=== PATIENT | female | born 1980 | race Caucasian/White ===

== ENCOUNTER → 2020-12-01 21:03 | Outpatient (CLI) | payer OTHER, SELFPAY ==
[2020-12-01 21:22] LABS: Basophils % 0.5 % (0.1-2.0); Eosinophils # 0.2 K/mm3 (0.0-0.4); Eosinophils % 2.3 % (0.1-12.0); Hematocrit 40.7 % (37.0-47.0); Hemoglobin 13.7 g/dL (12.2-16.2); Lymphocytes # 2.2 K/mm3 (0.7-4.5); Lymphocytes % 32.8 % (10-50); Mean Corpuscular HGB Conc 33.6 g/dL (31.8-35.4); Mean Corpuscular Volume 83.5 fl (81-99); Mean Platelet Volume 9.1 fl (7.4-10.4); Monocytes # 0.3 K/mm3 (0.1-1.0); Monocytes % 5.1 % (1.7-9.3); Neutrophils % 59.3 % (37.0-80.0); Platelet Count 263 K/mm3 (142-424); Red Blood Count 4.88 M/mm3 (4.20-5.40); Red Cell Distribution Width 13.4 % (11.5-17.5); White Blood Count 6.7 K/mm3 (4.8-10.8)
[2020-12-01 21:40] LABS: Alanine Aminotransferase 50 U/L (12-78); Albumin Level 4.8 g/dl (3.5-5.0); Albumin/Globulin Ratio 1.8 (1.1-1.8); Alkaline Phosphatase 63 U/L (38-126); Amylase 37 U/L (30-110); Anion Gap 15.7 mEq/L (5-15); Aspartate Amino Transferase 32 U/L (14-36); Bilirubin,Total 0.5 mg/dl (0.2-1.3); Blood Urea Nitrogen 16 mg/dl (7-17); Calcium 9.7 mg/dl (8.4-10.2); Carbon Dioxide 26 mmol/L (22.0-30.0); Chloride 104 mmol/L (98-107); Estimated Glomerular Filt Rate 93 ml/min (>60); GFR (African American) 113 ML/MIN (>60); Globulin 2.7 g/dL (1.3-3.2); Glucose 90 mg/dl (74-100); Potassium 4.7 mmoL/L (3.5-5.1); Sodium 141 mmol/L (136-145); Total Protein,Serum 7.5 g/dl (6.3-8.2)
== END ==
PROVIDERS: Visit Provider Internal Medicine
DX: R10.13 Epigastric pain (principal); R11.0 Nausea
CPT/HCPCS: 80053; 82150; 85025

== ENCOUNTER → 2020-12-08 08:25 | Outpatient (CLI) | payer OTHER, SELFPAY ==
--- NOTE | 2020-12-08 08:29 | US_ITS ---
PROCEDURE: US ABDOMEN COMPLETE CLINICAL INDICATION: ABD PAIN COMPARISON: CT ABDPELW/O CT ABD PELVIS W/O CONTRAST from 10/06/2015 FINDINGS: PANCREAS: Unremarkable. No obvious mass or abnormal fluid collection. No ductal dilatation LIVER: Diffuse increased echogenicity of the liver with poor through transmission of sound consistent with hepatic steatosis. No focal liver lesion demonstrated. There is appropriate direction of blood flow within non dilated portal vein. RIGHT KIDNEY: Unremarkable. Normal size and echogenicity. No hydronephrosis LEFT KIDNEY: Unremarkable. Normal size and echogenicity. No hydronephrosis GALLBLADDER: Prior cholecystectomy. Common duct is normal at 4 mm. AORTA: No evidence of aneurysmal dilatation. SPLEEN: Unremarkable. Normal size and echogenicity ASCITES: None demonstrated. IMPRESSION: Fatty liver. Prior cholecystectomy. Otherwise negative Dictated by: Cristi Dangelo MD 12/08/2020 14:28 Cristi Dangelo MD in [place] 12/08/2020 14:28
== END ==
PROVIDERS: PCP Internal Medicine; Visit Provider Internal Medicine
DX: R10.9 Unspecified abdominal pain (principal)
CPT/HCPCS: 76700

== ENCOUNTER → 2021-11-24 16:28 | Outpatient (CLI) | payer OTHER, SELFPAY ==
--- NOTE | 2021-11-24 16:29 | MM_ITS ---
PROCEDURE INFORMATION: Exam: MG Bilateral Screening 3D Mammography Exam date and time: 11/24/2021 4:22 PM Age: 40 years old Clinical indication: Baseline screening mammogram TECHNIQUE: Imaging protocol: Bilateral Screening tomosynthesis and 2D mammography including computer-aided detection (CAD) when performed. COMPARISON: No relevant prior studies available. FINDINGS: MAMMOGRAPHY: Breast composition: There are scattered areas of fibroglandular density. Mass: None. Architectural distortion: No new or suspicious architectural distortion. Calcifications: No new or suspicious calcifications are present Asymmetric density: No new or suspicious asymmetric density is present Skin thickening: None. Axillary adenopathy: Benign intramammary lymph node in the right axillary tail. No axillary adenopathy IMPRESSION: No mammographic evidence of malignancy. Recommend annual screening mammography unless otherwise clinically indicated. ASSESSMENT: BI-RADS category 2: Benign
== END ==
PROVIDERS: PCP Internal Medicine; Visit Provider Obstetrics & Gynecology
DX: Z12.31 Encounter for screening mammogram for malignant neoplasm of breast (principal)
CPT/HCPCS: 77063; 77067

== ENCOUNTER → 2021-12-15 07:34 | Outpatient (CLI) | payer OTHER, SELFPAY ==
--- NOTE | 2021-12-15 07:38 | MR_ITS ---
FINAL REPORT CLINICAL HISTORY: NECK PAIN. LEFT SIDED NECK PAIN WITH LEFT SHOULDER AND ARM PAIN. NUMBNESS, AND TINGLING. NO INJURY OR TRAUMA. HEADACHE. FINDINGS: Multiplanar MR imaging of the cervical spine was performed without contrast. On the sagittal T2-weighted images, disc degeneration is seen at multiple levels. There is no evidence of fracture. The vertebral alignment is normal. The cervical spinal cord has an unremarkable appearance without evidence of mass, edema or syrinx. No significant canal stenosis is identified. The cervicomedullary junction is normal. C2-3: There is no significant canal stenosis or neural foraminal narrowing. C3-4: Small central disc protrusion is present. There is no significant canal stenosis or neural foraminal narrowing. C4-5: Small central disc protrusion is present. There is no significant canal stenosis or neural foraminal narrowing. C5-6: Disc osteophyte complex is present. There is a small central disc protrusion. There is no significant canal stenosis or neural foraminal narrowing. C6-7: An annular bulge is present. There is no significant canal stenosis or neural foraminal narrowing. C7-T1: There is no significant canal stenosis or neural foraminal narrowing. IMPRESSION: Small central disc protrusions at C3-4, C4-5, and C5-6. Reviewed, Interpreted and Dictated by Roldan Bess III, MD Transcribed by Mariposa Haney Authenticated and [facility]
== END ==
LOC: RAD 07:34 → SDC 13:30
PROVIDERS: PCP Internal Medicine; Visit Provider Nurse Practitioner Family
DX: M50.321 Other cervical disc degeneration at C4-C5 level (principal)
CPT/HCPCS: 72141; 76376

== ENCOUNTER 2021-12-15 13:26 | Day surgery (SDC) | payer OTHER, SELFPAY ==
[2021-12-15 13:36] VITALS: BP 142/100; PULSE 78; TEMP 36.9; O2SAT 96; BMI 39.1
[2021-12-15 13:42] VITALS: BP 137/87; PULSE 89; RESP 18
[2021-12-15 13:44] VITALS: BP 137/87; PULSE 88; RESP 18; O2SAT 99
--- NOTE | 2021-12-15 13:45 | EXP.PAIN.PRO ---
Procedure Date: 12/15/21 Time: 13:45 Anesthesiologist:: Ranjith Thao CRNA Complications:: None Pre-procedure Diagnosis:: Degenerative disc disease cervical spine. Cervical radiculopathy. Post-procedure Diagnosis:: Same Indications for Procedure:: This patient is a pleasant 40-year-old female that comes to our clinic today with continued cervical neck pain posteriorly. Bilateral shoulder and arm radicular symptoms at times. Patient is status post trigger point injection of the cervical paraspinous muscles as well as bilateral trapezius muscles. She reports 2 days of significant improvement after the trigger point injections. However, all of her pain came back after 48 hours. She describes the pain as constant, dull, aching. She presents to the clinic with a ice pack covering her posterior cervical spine. She rates the pain 8/10. Procedure Details:: Procedure:Cervical epidural steroid injection Informed consent was obtained and the risks and benefits of the procedure were explained to the patient. The patient was taken to the procedure room and noninvasive monitors placed, including noninvasive blood pressure cuff and pulse oximeter. The neck was prepped using Betadine as a cleansing solution. The C6-C7 interspace was palpated. The skin and subcutaneous tissues were anesthetized using lidocaine 1.5% and a 25-gauge needle. After this an 18-gauge Touhy epidural needle was placed into the C6-C7 interspace and advanced using loss of resistance to air until the epidural space was encountered. After confirmation of needle placement in the epidural space, a solution containing lidocaine 1.5%, 4 mL and Depo-Medrol 80 mg was incrementally injected into the cervical epidural space.~ The patient tolerated the procedure well with no complications. The patient was observed in the Pain Clinic and then discharged home neurologically intact. Plan and Disposition:: Patient was discharged without incident.
[2021-12-15 13:52] VITALS: BP 147/100; PULSE 78; RESP 20; O2SAT 96
== END 2021-12-15 14:21 | disposition home or self-care (01) ==
PROVIDERS: PCP Internal Medicine; Visit Provider Nurse Anesthetist, Certified Registered
DX: M50.123 Cervical disc disorder at C6-C7 level with radiculopathy (principal)
CPT/HCPCS: 62321; J1040; Q9966

== ENCOUNTER 2022-01-12 14:27 | Day surgery (SDC) | payer OTHER, SELFPAY ==
[2022-01-12 14:31] VITALS: BP 184/98; PULSE 94; RESP 18; TEMP 37.6; O2SAT 97; BMI 40.4
[2022-01-12 14:52] VITALS: BP 175/100; PULSE 90; RESP 20; O2SAT 97
[2022-01-12 14:54] VITALS: BP 175/101; PULSE 90; RESP 18; O2SAT 97
[2022-01-12 15:02] VITALS: BP 184/98; PULSE 94; RESP 18; TEMP 37.6; O2SAT 97
--- NOTE | 2022-01-12 15:06 | EXP.PAIN.PRO ---
Procedure Date: 01/12/22 Time: 14:45 Anesthesiologist:: Ranjith Thao CRNA Complications:: None Pre-procedure Diagnosis:: Degenerative disc disease cervical spine. Cervical radiculopathy. Post-procedure Diagnosis:: Same. 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 This is been going on for several months. She had a cervical epidural steroid injection that C6-7 level 1 month ago with 90% improvement terms of her symptoms. Today, she feels the symptoms returning to some degree. She is requesting a repeat cervical epidural steroid injection prior to the symptoms becoming severe as last time. She rates her pain today 6/10. Procedure Details:: Procedure:Cervical epidural steroid injection Informed consent was obtained and the risks and benefits of the procedure were explained to the patient. The patient was taken to the procedure room and noninvasive monitors placed, including noninvasive blood pressure cuff and pulse oximeter. The neck was prepped using Betadine as a cleansing solution. The C6-C7 interspace was palpated. The skin and subcutaneous tissues were anesthetized using lidocaine 1.5% and a 25-gauge needle. After this an 18-gauge Touhy epidural needle was placed into the C6-C7 interspace and advanced using loss of resistance to air until the epidural space was encountered. After confirmation of needle placement in the epidural space, a solution containing lidocaine 1.5%, 4 mL and Depo-Medrol 80 mg was incrementally injected into the cervical epidural space.~ The patient tolerated the procedure well with no complications. The patient was observed in the Pain Clinic and then discharged home neurologically intact. Plan and Disposition:: Patient was discharged without incident
== END 2022-01-12 15:02 | disposition home or self-care (01) ==
PROVIDERS: PCP Internal Medicine; Visit Provider Nurse Anesthetist, Certified Registered
DX: M50.123 Cervical disc disorder at C6-C7 level with radiculopathy (principal)
CPT/HCPCS: 62321; J1040; Q9966

== ENCOUNTER 2022-02-19 09:00 | Outpatient (RCR) | payer OTHER, SELFPAY ==
--- NOTE | 2022-01-19 15:04 | HMH.PTOPEV ---
PT Outpatient Evaluation Rehab PT Outpatient Evaluation Start: 01/19/22 14:05 Freq: Status: Active Protocol: Document 01/19/22 14:45 BARBRA (Rec: 01/19/22 15:03 BARBRA [id number]) E-signed By Juma Hewitt, PT Outpatient Therapy Subjective History Subjective History Patient is a 41 year old female presenting to outpatient PT with reports of sub-acute cervical spine pain starting approx 3 months ago of insidious onset. Most recent imaging indicates C3-6 disc bulges. Previous Rx includes pain management for injections that have provided some relief, and chiro with minimal relief. Comorbidities include hx of mary lou and lithotripsie x 4. Chief Complaint Pain,Spasms,Stiff,Paresthesia Symptom Type Ache,Dull Symptoms Relieved By Rest/Positioning,Ice, Prescription Meds Symptoms Aggravated By Physical Activity,Lifting Prior Functional Limitations None Current Functional Limitations Reaching,Lifting,Housework, Driving,Sleeping Symptom Description Constant but Variable Level of pain today (0-10) 6 Pain scale - at its best (0-10) 4 Pain scale - at its worst (0-10) 7 Cervical Eval Palpation Cervical Muscles L Cervical Paraspinal,L Suboccipital,L CT Junction,L Upper Trapezius,L Thoracic Paraspinals Cervical/Thoracic Palpation Findings Tenderness,Spasm,Trigger Point Posture Head/C-Spine Posture Sitting Position Extended Head/C-Spine Posture Standing Position Extended Flexibility Deficits Upper Trapezius Muscle Length (L) Moderate Tightness Levaetor Scapulae Muscle Length (L) Moderate Tightness Pectoralis Minor Muscle Length (L) Moderate Tightness Passive Joint Mobility Cervical PIVM WNL: R OA L OA R AA L AA R C2/3 L C2/3 R C3/4 L C3/4 R C4/5 L C4/5 R C5/6 L C5/6 R C6/7 L C6/7
== END 2022-02-19 09:05 | disposition home or self-care (01) ==
LOC: PT 09:00
PROVIDERS: PCP Internal Medicine; Visit Provider Internal Medicine
DX: M54.2 Cervicalgia (principal)
CPT/HCPCS: 20560; 97010; 97012; 97014; 97110; 97140; 97163; G0283

== ENCOUNTER → 2022-05-06 16:04 | Outpatient (CLI) | payer OTHER, SELFPAY ==
--- NOTE | 2022-05-06 16:07 | MR_ITS ---
PROCEDURE INFORMATION: Exam: MR Left Upper Extremity Joint Without Contrast; Shoulder Exam date and time: 05/06/2022 4:28 PM Age: 41 years old Clinical indication: Pain; Shoulder; Left; Additional info: Left shoulder pain TECHNIQUE: Imaging protocol: Magnetic resonance imaging of the Left upper extremity without contrast. Exam focused on the shoulder. COMPARISON: No relevant prior study is available. FINDINGS: Bones and cartilage: There is no acute fracture or dislocation. No aggressive bone lesions are present. Punctate cystic lesions in the posterosuperior bare area of the humeral head are most typical for normal anatomic variant pseudocysts that communicate with the joint space. There is no articular surface tear of the infraspinatus tendon to suggest internal impingement. Joint spaces: There is minimal primary osteoarthritis of the acromioclavicular joint. A normal amount of fluid is present in the glenohumeral joint. Glenoid labrum: No convincing tear on this non-arthrographic study. Bursae: A mild amount of fluid is present in the subacromial-subdeltoid bursa. Supraspinatus tendon: Low-grade partial-thickness tearing involves the bursal surface of the supraspinatus tendon. Moderate tendinosis involves the adjacent supraspinatus tendon. Infraspinatus tendon: Very low-grade intrasubstance tearing involves the infraspinatus tendon. There is mild tendinosis of the adjacent intact infraspinatus tendon. Subscapularis tendon: Mild tendinosis involves the subscapularis tendon. Teres minor tendon: No tear or significant tendinosis involves the teres minor tendon. Tendon of biceps brachii: Moderate tendinosis involves the intra-articular portion of the long head of the biceps tendon. Glenohumeral ligaments: Unremarkable as visualized. Muscles: The rotator cuff musculature demonstrates no significant edema or atrophy. Soft tissues: No focal fluid collection or suspicious mass. IMPRESSION: 1. Low-grade partial-thickness tearing of the supraspinatus tendon bursal surface, superimposed on moderate tendinosis. 2. Infraspinatus very low-grade intrasubstance tearing superimposed on mild tendinosis. 3. Moderate tendinosis of the long head of the biceps tendon. 4. Mild subacromial-subdeltoid bursitis.
== END ==
PROVIDERS: PCP Internal Medicine; Visit Provider Internal Medicine
DX: M25.512 Pain in left shoulder (principal)
CPT/HCPCS: 73221

== ENCOUNTER → 2022-05-26 16:47 | Outpatient (CLI) | payer OTHER, SELFPAY ==
--- NOTE | 2022-05-26 16:54 | XR_ITS ---
PROCEDURE INFORMATION: Exam: XR Left Shoulder Exam date and time: 05/26/2022 4:54 PM Age: 41 years old Clinical indication: Pain; Shoulder; Left; Additional info: Shoulder pain TECHNIQUE: Imaging protocol: Radiologic exam of the Left shoulder. Views: 2 or more views. COMPARISON: MR SHOULDER LT WO CON 05/06/2022 4:28 PM FINDINGS: Bones/joints: Osseous structures of the shoulder are grossly normal. Acromioclavicular joint is without dislocation or fracture. Subacromial space height is normal. Adjacent ribs are normal. Glenohumeral joint, clavicle, acromion, and coracoid process appear grossly normal. Soft tissues: Normal. IMPRESSION: Normal shoulder.
== END ==
PROVIDERS: PCP Internal Medicine; Visit Provider Orthopaedic Surgery
DX: M25.512 Pain in left shoulder (principal)
CPT/HCPCS: 73030

== ENCOUNTER 2022-12-28 12:41 | Day surgery (SDC) | payer OTHER, SELFPAY ==
[2022-12-28 12:49] VITALS: BP 156/94; BP 163/99; PULSE 78; PULSE 79; RESP 16; RESP 20; TEMP 36.5; O2SAT 98; BMI 40.4
--- NOTE | 2022-12-28 13:05 | P.PCN_ITS ---
Procedure Date: 12/28/22 Time: 12:45 Anesthesiologist:: Ranjith Thao CRNA Complications:: None Pre-procedure Diagnosis:: Degenerative disc cervical spine. Cervical radiculopathy. Post-procedure Diagnosis:: Same. Indications for Procedure:: Patient is a very pleasant 41-year-old female that comes our clinic today for repeat cervical epidural steroid injection. Patient has had this injection in in the past with significant improvement terms of her overall posterior cervical neck pain as well as bilateral shoulder and arm radicular symptoms. 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 She rates her pain today 6/10. Procedure Details:: Procedure:Cervical epidural steroid injection Informed consent was obtained and the risks and benefits of the procedure were explained to the patient. The patient was taken to the procedure room and noninvasive monitors placed, including noninvasive blood pressure cuff and pulse oximeter. The neck was prepped using Chloraprep as a cleansing solution. The C6- C7 interspace was viewed using fluroscopy. The skin and subcutaneous tissues were anesthetized using lidocaine 1.5% and a 25-gauge needle. After this an 18- gauge Touhy epidural needle was placed into the C6-C7 interspace under fluroscopy guidance and advanced using loss of resistance to air until the epidural space was encountered. After confirmation of needle placement in the epidural space using contrast dye, a solution containing normal saline, 2 mL and Depo-Medrol 80 mg was incrementally injected into the cervical epidural space.~ The patient tolerated the procedure well with no complications. The patient was observed in the Pain Clinic and then discharged home neurologically intact. Plan and Disposition:: Patient was discharged without incident.
[2022-12-28 13:06] VITALS: BP 145/74; PULSE 66; RESP 20
== END 2022-12-28 13:07 | disposition home or self-care (01) ==
PROVIDERS: PCP Internal Medicine; Visit Provider Nurse Anesthetist, Certified Registered
DX: M50.123 Cervical disc disorder at C6-C7 level with radiculopathy (principal)
CPT/HCPCS: 62321; J1040

== ENCOUNTER → 2023-01-21 08:11 | Outpatient (CLI) | payer OTHER, SELFPAY ==
--- NOTE | 2023-01-21 08:11 | MM_ITS ---
PROCEDURE INFORMATION: Exam: MG Bilateral Screening 3D Mammography Exam date and time: 01/21/2023 8:04 AM Age: 42 years old Clinical indication: Screening examination TECHNIQUE: Imaging protocol: Bilateral Screening tomosynthesis and 2D mammography including computer-aided detection (CAD) when performed. COMPARISON: MG MM DIG SCREENING MAMM BI W/CAD 11/24/2021 4:22 PM FINDINGS: MAMMOGRAPHY: Breast composition: The breasts are almost entirely fatty. Mass: None. Architectural distortion: None. Calcifications: No suspicious calcifications. Asymmetric density: None. Skin thickening: None. Axillary adenopathy: None. IMPRESSION: No mammographic evidence of malignancy. Annual screening is recommended unless otherwise clinically indicated. ASSESSMENT: BI-RADS Category 1: Negative
== END ==
PROVIDERS: PCP Internal Medicine; Visit Provider Obstetrics & Gynecology
DX: Z12.31 Encounter for screening mammogram for malignant neoplasm of breast (principal)
CPT/HCPCS: 77063; 77067

== ENCOUNTER 2023-05-24 13:59 | Day surgery (SDC) | payer OTHER, SELFPAY ==
[2023-05-24 14:16] VITALS: BP 136/87; PULSE 77; RESP 16; TEMP 36.5; O2SAT 100; BMI 41.5
[2023-05-24 14:34] VITALS: BP 156/83; PULSE 77; RESP 18; O2SAT 96
[2023-05-24] MEDS: methylPREDNISolone ACETATE 80MG/ML VIAL 80 MG (14:34)
[2023-05-24 14:35] VITALS: BP 156/83; PULSE 79; RESP 18; O2SAT 96
[2023-05-24 14:37] VITALS: BP 136/87; PULSE 77; RESP 18; TEMP 36.5; O2SAT 100
--- NOTE | 2023-05-24 14:37 | P.PCN_ITS ---
Procedure Date: 05/24/23 Time: 14:30 Anesthesiologist:: Ranjith Thao CRNA Complications:: None Pre-procedure Diagnosis:: Degenerative disc cervical spine multilevels. Cervical radiculopathy. Post-procedure Diagnosis:: Same. Indications for Procedure:: Patient is a very pleasant 42-year-old female comes our clinic today for repeat cervical epidural steroid injection. Patient received her initial injection 6 months ago. She reports 6 months of significant improvement terms of her over all symptoms. Today she describes cervical neck pain as constant, dull, aching. Patient also describes bilateral shoulder and arm radicular symptoms at times. She rates her pain 6/10. Procedure Details:: Procedure:Cervical epidural steroid injection Informed consent was obtained and the risks and benefits of the procedure were explained to the patient. The patient was taken to the procedure room and noninvasive monitors placed, including noninvasive blood pressure cuff and pulse oximeter. The neck was prepped using Chloraprep as a cleansing solution. The C6- C7 interspace was viewed using fluroscopy. The skin and subcutaneous tissues were anesthetized using lidocaine 1.5% and a 25-gauge needle. After this an 18- gauge Touhy epidural needle was placed into the C6-C7 interspace under fluroscopy guidance and advanced using loss of resistance to air until the epidural space was encountered. After confirmation of needle placement in the epidural space using contrast dye, a solution containing normal saline, 2 mL and Depo-Medrol 80 mg was incrementally injected into the cervical epidural space.~ The patient tolerated the procedure well with no complications. The patient was observed in the Pain Clinic and then discharged home neurologically intact. Plan and Disposition:: Patient was discharged without incident.
== END 2023-05-24 14:37 | disposition home or self-care (01) ==
PROVIDERS: PCP Internal Medicine; Visit Provider Nurse Anesthetist, Certified Registered
DX: M50.123 Cervical disc disorder at C6-C7 level with radiculopathy (principal)
CPT/HCPCS: 62321; J1040

== ENCOUNTER 2024-02-16 09:19 | Outpatient (POV) | payer OTHER, SELFPAY ==
--- NOTE | 2024-02-16 10:13 | EXP.PAIN.SOA ---
[facility] Disclaimer: The information contained in this section may have been updated after the patient was seen, as this information can be updated by other users. Medical History Anxiety and depression Folliculitis Kidney stones Surgical History H/O wisdom tooth extraction History of cholecystectomy History of cystoscopy History of ureteroscopy Family History Other Alcoholism Asthma Coronary artery disease Diabetes FHx: mental illness Heart attack Hyperlipidemia Hypertension Substance abuse Tuberculosis Social History Smoking Status: Never smoker alcohol intake: never substance use type: denies use current occupational status: employed Travel in the last 8 weeks: None PM Subjective & Objective Subjective Subjective:: patient is a pleasant 43-year-old female who presents today for follow-up of worsening pain. Today she rates her pain a 6 out of 10. She denies any new trauma or injury. She does state that just in the last 2 weeks she has started to experience more neck pain that does radiate down her left shoulder and arm with numbness and tingling that goes into her fingers. Patient states this is been going on for years and progressively worsened. Patient did previously get a cervical epidural back in May that did provide 80% relief and has lasted up until the last 2 weeks. Patient does state that she would like to see about repeating this injection because it did provide such significant relief. Patient continues to do at home exercising and stretching for longer than 12 weeks with no additional changes. Her Christopher has been reviewed and is appropriate. Review of Systems: General: No recent weight changes, no fever, no sleep disturbances Respiratory: No cough, no shortness of air, no recurring pulmonary infections Cardiovascular/peripheral vascular: No chest pain, no palpitations, no edema, no shortness of breath Gastrointestinal: No new onset incontinence, normal bowel movements reported Genitourinary: No new onset incontinence Musculoskeletal: Neck pain, left shoulder pain, left arm pain Psychiatric: [Normal mood/affect] Neurological: [Denies weakness in extremities], [denies balance issues] Pain at rest (0-10 scale): 6 Objective Objective:: Physical Exam: General: Alert and oriented x3, no acute distress, pleasant and cooperative Lungs: Respirations even and unlabored, symmetrical chest expansion Eyes: PERRL Musculoskeletal: Flexion and extension of cervical [spine] somewhat guarded secondary to pain, [antalgic gait noted] positive Spurling's test Neurological: Speech clear, no gross sensory deficit Has patient had previous pain injection?: Yes Percent improvement in pain since last injection: 80% Conservative treatment options previously tried: Home exercise plan Length of treatment: Longer than 12 weeks Meds Home Medications and Allergies Home Medications ?Medication ?Instructions ?Recorded ?Confirmed ?Type loratadine 10 mg capsule 10 mg PO ONCE allergies 07/01/17 05/24/23 History ibuprofen 200 mg tablet 200 mg PO ONCE PRN Pain 08/09/17 05/24/23 History albuterol sulfate 90 mcg/actuation 90 mcg inhalation DIRECTED 01/15/19 05/24/23 History aerosol inhaler Breathing problems #9 grams levonorgestrel 21 mcg/24 hr (up to 20 mcg intrauterine . control 11/20/21 05/24/23 History 8 years) 52 mg intrauterine device (Mirena) sertraline 100 mg tablet (Zoloft) 150 mg PO Q24H Depression 11/20/21 05/24/23 History tizanidine 4 mg tablet 4 mg PO DAILY Pain 12/15/21 05/24/23 History azelastine 137 mcg (0.1 %) nasal 1 spray intranasal BID Eustachian 08/11/23 Rx spray tube dysfunction #30 mL methylprednisolone 4 mg tablets in See Rx Instructions PO PER PKG DIR 08/11/23 Rx a dose pack (Medrol (Aquilino)) #21 tabs New Prescriptions to Start Prescriptions: Allergies Allergy/AdvReac Type Severity Reaction Status Date / Time No Known Allergies Allergy Verified 05/24/23 14:16 Assessment and Plan *Assessment and plan (1) Degenerative disc disease, cervical: Status: Acute Category: Medical Code(s): M50.30 - Other cervical disc degeneration, unspecified cervical region (2) Cervical radiculopathy: Status: Acute Category: Medical Code(s): M54.12 - Radiculopathy, cervical region (3) Impingement syndrome, shoulder, left: Status: Acute Category: Medical Code(s): M75.42 - Impingement syndrome of left shoulder Plan Patient is experiencing worsening pain in her neck with radiating numbness and tingling into her left extremity down to her fingers. Patient did have limited range of motion of her cervical spine with a positive Spurling's test. Patient did previously get a cervical epidural in May that has lasted 8 months up until the last 2 weeks. Patient did have improved function with overall decreased pain. I did discuss with patient I do believe she would benefit from a repeat cervical epidural. Risk and benefits were discussed with patient and she would like to proceed forward with this plan of care. Patient has tried and failed conservative therapy for longer than 12 weeks. Patient will be scheduled for a MARIANA C6-C7 under fluoroscopy. She is not on any blood thinners. Patient has been instructed to contact the clinic with any concerns before the next appointment. Dr. Goff has reviewed this note and agrees with this plan of care. This note was dictated using voice recognition software and make contain errors or omissions. All injections are used with Lidocaine or Bupivacaine and Depo Medrol.
[2024-02-16 10:30] VITALS: BP 148/108; PULSE 85; RESP 16; O2SAT 95; BMI 40.7
== END 2024-02-16 23:59 | disposition home or self-care (01) ==
LOC: SC.PAIN 09:20
PROVIDERS: PCP Internal Medicine; Visit Provider Nurse Practitioner Family
DX: M50.10 Cervical disc disorder with radiculopathy, unspecified cervical region (principal); M75.42 Impingement syndrome of left shoulder
CPT/HCPCS: 99212; G0463

== ENCOUNTER 2024-02-17 08:09 | Day surgery (SDC) | payer OTHER, SELFPAY ==
[2024-02-17 08:30] VITALS: BP 163/93; PULSE 74; RESP 16; O2SAT 97; BMI 37.3
[2024-02-17] MEDS: IOPAMIDOL-200 (41%);10ML VIAL 10 ML IV (08:35)
[2024-02-17] MEDS: methylPREDNISolone ACETATE 80MG/ML VIAL 80 MG (08:35)
[2024-02-17 08:36] VITALS: BP 155/82; PULSE 79; RESP 18; O2SAT 98
[2024-02-17 08:37] VITALS: BP 155/82; PULSE 79; RESP 18; O2SAT 98
[2024-02-17 08:49] VITALS: BP 139/90; PULSE 71; RESP 16; O2SAT 98
--- NOTE | 2024-02-17 08:52 | P.PCN_ITS ---
Procedure Date: 02/17/24 Time: 08:30 Anesthesiologist:: Ranjith Thao CRNA Complications:: None Pre-procedure Diagnosis:: Degenerative disc cervical spine multilevels. Cervical radiculopathy. Post-procedure Diagnosis:: Same. Indications for Procedure:: Patient is a pleasant 43-year-old female comes our clinic today for cervical epidural steroid injection. Patient had same injection May 2023. She reports significant improvement terms of her overall posterior cervical neck pain as well as bilateral arm radicular symptoms with her initial injection in May. Patient reports symptoms are returning to some degree. However, not to the degree they were prior to the May injection. She describes posterior cervical neck pain as constant, dull, aching. Also bilateral arm radicular symptoms at times. She rates her pain 6/10. Procedure Details:: Procedure:Cervical epidural steroid injection Informed consent was obtained and the risks and benefits of the procedure were explained to the patient. The patient was taken to the procedure room and noninvasive monitors placed, including noninvasive blood pressure cuff and pulse oximeter. The neck was prepped using Chloraprep as a cleansing solution. The C6- C7 interspace was viewed using fluroscopy. The skin and subcutaneous tissues were anesthetized using lidocaine 1.5% and a 25-gauge needle. After this an 18- gauge Touhy epidural needle was placed into the C6-C7 interspace under fluroscopy guidance and advanced using loss of resistance to air until the epidural space was encountered. After confirmation of needle placement in the epidural space using contrast dye, a solution containing normal saline, 2 mL and Depo-Medrol 80 mg was incrementally injected into the cervical epidural space.~ The patient tolerated the procedure well with no complications. The patient was observed in the Pain Clinic and then discharged home neurologically intact. Plan and Disposition:: Patient was discharged without incident.
== END 2024-02-17 08:49 | disposition home or self-care (01) ==
PROVIDERS: PCP Internal Medicine; Visit Provider Nurse Anesthetist, Certified Registered
DX: M50.30 Other cervical disc degeneration, unspecified cervical region (principal); M54.12 Radiculopathy, cervical region
CPT/HCPCS: 62321; J1010; Q9966

== ENCOUNTER 2025-01-22 11:30 | Outpatient (CLI) | payer OTHER, SELFPAY ==
--- NOTE | 2025-01-22 11:00 | MM_ITS ---
PROCEDURE INFORMATION: Exam: MG Bilateral Screening 3D Mammography Exam date and time: 01/22/2025 11:30 AM Age: 44 years old Clinical indication: Screening examination TECHNIQUE: Imaging protocol: Bilateral Screening tomosynthesis and 2D mammography including computer-aided detection (CAD) when performed. COMPARISON: 1. MG MM DIG SCREENING MAMM BI W/CAD 01/21/2023 8:04 AM 2. MG MM DIG SCREENING MAMM BI W/CAD 11/24/2021 4:22 PM FINDINGS: MAMMOGRAPHY: Breast composition: The breasts are almost entirely fatty. Mass: None. Architectural distortion: None. Calcifications: No suspicious calcifications. Asymmetric density: None. Skin thickening: None. Axillary adenopathy: None. IMPRESSION: No mammographic evidence of malignancy. Annual screening is recommended unless otherwise clinically indicated. ASSESSMENT: BI-RADS Category 1: Negative.
--- OUTSIDE RECORDS SUMMARY | 2025-01-22 11:32 | XMS_ITS | Clinical Summary ---
[facility] Organization [facility] Address [address] [place] [address] Care Team Providers Care Building Custodian Name Role Phone Unavailable Primary Care Provider Unavailabl e Social History Tobacco Use Types Packs/Day Years Used Date Smoking Tobacco: Never Assessed Abuse Screen Answer Date Recorded Unsafe at Home or Work/School Not on file Feels Threatened by Someone? Not on file 12/2022 Does Anyone Keep You from Co ntacting Others or Doint Things Outside the Home? Not on file 01/24/2023 Physical Sign of Abuse Present Not on file 1 Housing Stability Answer Date Recorded Current Living Arrangements Not on file 12/2022 Potentially Unsafe Housing Conditions Not on marissa e 01/24/2023 Family and Community Support Answer Popeye e Recorded Help with Day-to-Day Activities Not on file 01/24/2023 Lonely or Isolated Not on file 01/24/2023 Employment Answer Date Recorded Do you want help finding or keeping work or a arturo b? Not on file 01/24/2023 Disabilities Answer Date Recorded Concentrating, Remembering, or Making Decisions Difficulty Not on file 01/24/2023 Doing Errands Independently Difficulty Not on fi le 01/24/2023 Education Answer Date Recorded Help with school or training? Not on file Preferred Language Not on file 01/24/2023 Comments Unknown Sex and Gender Information Value Date Recorded Sex Assigned at Not on file Legal Sex Female 12:43 PM EDT Gender Identity Not on file Sexual Orientation Not on file Plan of Treatment Health Maintenance Due Date Last Done Comments ANNUAL PHYSICAL 1980 Annual Gynecologic Pelvic an d Breast Exam 1980 HEPATITIS C SCREENING 1980 TDAP/TD VACCINES (1 - Tdap) 12/31/1999 MAMMOGRAM 2020 INFLUENZA VACCINE 11/16/2024 Pneumococcal Vaccine 0-49 Aged Out No longer eligible based on patient's age to complete this topic
== END 2025-01-22 23:59 | disposition home or self-care (01) ==
LOC: RAD 11:30
PROVIDERS: PCP Internal Medicine; Visit Provider Obstetrics & Gynecology
DX: Z12.31 Encounter for screening mammogram for malignant neoplasm of breast (principal)
CPT/HCPCS: 77063; 77067